=== PATIENT | female | born 2000 | race African-American/Black ===

== ENCOUNTER 2023-03-21 09:50 | Outpatient (REF) | payer MEDICAID, SELFPAY ==
[2023-03-21 11:11] LABS: HCG Quantitative < 2 mIU/mL
== END 2023-03-21 09:51 | disposition home or self-care (01) ==
LOC: HO.10HDL 09:50
PROVIDERS: Visit Provider Family Medicine Adult Medicine
DX: Z33.1 Pregnant state, incidental (principal)
CPT/HCPCS: 36415; 84702

== ENCOUNTER 2023-06-26 14:22 | Outpatient (REF) | payer OTHER, SELFPAY ==
[2023-06-27 04:47] LABS: ~Hepatitis B Surface Antibody NONREACTIVE (Nonreactive)
[2023-06-28 17:39] LABS: Rubella IgG Antibody 4.46 Index
[2023-07-03 15:57] LABS: Polio 1 Titer 1:32
== END 2023-06-26 14:23 | disposition home or self-care (01) ==
LOC: HO.LAB 14:22
PROVIDERS: Visit Provider Family Medicine Adult Medicine
DX: Z01.84 Encounter for antibody response examination (principal)
CPT/HCPCS: 36415; 86382; 86706; 86735; 86762; 86765

== ENCOUNTER 2023-10-18 10:24 | Outpatient (REF) | payer OTHER, SELFPAY ==
--- NOTE | ~2023-10-18 | XR_ITS ---
EXAMINATION: XR CHEST CLINICAL INFORMATION: Hemoptysis. Upright chest x-ray for order, patient unsure of , consent obtained. COMPARISON: None available. TECHNIQUE: 2 views of the chest were obtained. FINDINGS: There is no gross pneumothorax. Mild degenerative changes in the thoracic spine. No pleural effusion. Cardiac silhouette upper limits of normal in size. No focal consolidation to suggest pneumonia. XR/XR chest 2V IMPRESSION: No evidence of pneumonia. Cardiac silhouette borderline enlarged. Correlation with clinical exam and possible cardiology consultation recommended.
[2023-10-18 10:43] LABS: MANUAL DIFF FLAG NO
[2023-10-18 12:09] LABS: INTERNATIONAL NORM RATIO 0.9 (0.9-1.1); Prothrombin Time 10.5 SEC (11.1-13.3)
[2023-10-18 12:12] LABS: Partial Thromboplastin Time 30.2 SEC (26.0-36.8)
[2023-10-18 12:23] LABS: Basophils Percent Auto 0.5 % (0-2); Eosinophils Absolute Auto 0.1 X10*3/uL (0.0-0.4); Eosinophils Percent Auto 1.1 % (0-4); Hematocrit 41.5 % (37.0-47.0); Hemoglobin 13.6 g/dl (12.0-16.0); Imm Gran Pct Auto 3.1 % (0.0-0.4); Lymphocytes Absolute Auto 1.4 X10*3/uL (1.2-4.9); Lymphocytes Percent Auto 21.8 % (20-40); Mean Corpuscular HGB Conc 32.8 g/dl (31.0-35.0); Mean Corpuscular Hemoglobin 29.8 pg (27.0-33.0); Monocytes Absolute Auto 0.5 X10*3/uL (0.1-1.2); Monocytes Percent Auto 7.8 % (2-11); Neutrophils Absolute Auto 4.3 x10*3/uL (2.0-8.3); Neutrophils Percent Auto 65.7 % (45-73); Platelet Count 183 X10*3/uL (160-400); Red Blood Count 4.56 X10*6/uL (4.20-5.50); Red Cell Distribution Width 13.5 % (11.0-16.0); White Blood Count 6.5 X10*3/uL (4.8-10.8)
== END 2023-10-18 10:25 | disposition home or self-care (01) ==
LOC: HO.LAB 10:24
PROVIDERS: PCP Family Medicine Adult Medicine; Visit Provider Family Medicine Adult Medicine
DX: R04.2 Hemoptysis (principal)
CPT/HCPCS: 36415; 71046; 85025; 85610; 85730

== ENCOUNTER 2023-11-19 14:46 | Emergency (ER) | payer OTHER, SELFPAY ==
--- NOTE | ~2023-11-19 | US_ITS ---
EXAMINATION: US PELVIS CLINICAL INFORMATION: Abnormal vaginal bleeding. LMP 07/23/2023. COMPARISON: None available. TECHNIQUE: Ultrasound of the pelvis is performed using both transabdominal and transvaginal transducers along with Doppler. Transvaginal imaging is performed due to inadequate visualization transabdominally. FINDINGS: Anteverted anteflexed uterus measuring 6.8 x 3.2 x 4.2 cm. No uterine mass. Thickened vascular endometrium measuring up to 1.3 cm. Trace amount of free fluid in the endocervical canal, likely physiologic. Normal morphology of the ovaries with preserved flow at the moment of this examination. The right ovary measures 3.2 x 1.4 x 1.3 cm, 3.1 mL. The left ovary measures 3.2 x 2.4 x 1.6 cm, 6.4 mL. No free fluid. US/US pelvic and transvaginal IMPRESSION: Abnormal appearance of the endometrium which is thickened and vascular; differential considerations include but are not limited to endometritis, retained products of conception and hyperplasia, less likely neoplasia in view of patient's age. Recommend RN CVICU consult.
[2023-11-19 15:01] VITALS: BP 123/76; PULSE 84; RESP 20; TEMP 36.4; O2SAT 98; BMI 42.0
--- NOTE | 2023-11-19 15:04 | ED.FEMALEGU ---
HPI - Female Genitourinary General Chief complaint: Abdominal Pain Stated complaint: Low Abd Pain Heavy Discharge Time Seen by Provider: 11/20/23 00:45 Source: patient Mode of arrival: ambulatory Limitations: no limitations History of Present Illness HPI Narrative: Patient 23 years old claims that she been for 5 months tested at home test were positive but never seen a ObG today for the 1st time patient had vaginal bleeding no active bleeding at this time patient worried about the miscarriage no nausea no vomiting no abdominal pain no fever or chills Related Data Allergies Allergy/AdvReac Type Severity Reaction Status Date / Time No Known Allergies Allergy Verified 11/19/23 15:07 Review of Systems Review of Systems: Yes all other systems are reviewed and are negative [facility] Social History Social History Advance Directives: No Advance Directives Information Provided: No Physical Exam Vital Signs: Vital Signs: Last Vital Signs Temp 98.1 F 11/20/23 00:46 Pulse 72 11/20/23 00:46 Resp 16 11/20/23 00:46 BP 93/57 L 11/20/23 00:46 Pulse Ox 98 11/20/23 00:46 O2 Del Method Room Air 11/20/23 00:46 BMI result Body Mass Index 42.0 Appearance: Alert. Oriented X3. No acute distress. Obese Eyes: PERRLA, No Nystagmus ENT: Pharynx normal. Oral Mucosa moist Neck: Normal inspection. Neck supple. CVS: Normal heart rate and rhythm. Pulses normal. Respiratory: No respiratory distress. Equal air entry bilateral, no wheezing/rales/rhonchi Abdomen: Soft and nontender. Bowel sounds are present, no mass palpable, no CVA tenderness Skin: Skin warm and dry. Normal skin color. Normal skin turgor. Extremities: No lower extremity edema. No calf tenderness Neuro: Oriented X 3. Course Course Course Narrative: This is an RME: Additional HPI, ROS, PE not included below will be deferred to primary provider. This is a [id number], (4 miscarriages), presenting to the ER with a complaint of vaginal bleeding since today. She states that her periods are irregular and she has not had a menstrual cycle in 5 months. Admits to having sexual intercourse in the last 5 months. Admits to having some nausea. Plan: Labs, UA, US Medical Decision Making Medical Decision Making [facility] Narrative: Patient's hCG is negative unlikely she was before she never had vaginal bleeding for last 5 months no fever no chills no signs of infection patient advised to follow with sheep clipper for DUB Lab Data [facility] Lab Attestation statement: I reviewed the patient's lab results. 11/19/23 16:54 11/19/23 16:54 Labs: Lab Results 11/19/23 Range/Units 16:54 WBC 7.6 (4.8-10.8) X10*3/uL RBC 4.98 (4.20-5.50) X10*6/uL Hgb 14.5 (12.0-16.0) g/dl Hct 44.2 (37.0-47.0) % MCV 88.8 (80.0-98.0) fL MCH 29.1 (27.0-33.0) pg MCHC 32.8 (31.0-35.0) g/dl RDW 13.2 (11.0-16.0) % Plt Count 200 (160-400) X10*3/uL MPV 11.5 (9.4-12.3) fL Immature Gran % (Auto) 1.3 H (0.0-0.4) % Neut % (Auto) 71.3 (45-73) % Lymph % (Auto) 21.4 (20-40) % [place] % (Auto) 4.8 (2-11) % Eos % (Auto) 0.9 (0-4) % Baso % (Auto) 0.3 (0-2) % Lymph # (Auto) 1.6 (1.2-4.9) X10*3/uL [place] # (Auto) 0.4 (0.1-1.2) X10*3/uL Eos # (Auto) 0.1 (0.0-0.4) X10*3/uL Baso # (Auto) 0.0 (0.0-0.2) X10*3/uL Abs Immat Gran (auto) 0.10 H (0.00-0.03) X10*3/uL Absolute Neuts (auto) 5.4 (2.0-8.3) x10*3/uL Absolute Nucleated RBC 0.000 (0.0-0.012) X10*3/uL Nucleated RBC % (auto) 0.0 (0.0-0.2) /100WBC Sodium 142 (135-145) mmol/L Potassium 4.7 (3.3-5.1) mmol/L Chloride 108 (96-108) mmol/L Carbon Dioxide 26 (22-29) mmol/L Anion Gap 13 (12-20) BUN 12 (9-16) mg/dL Creatinine 0.70 (0.5-1.4) mg/dL Estim Creat Clear Calc 151.1 Estimated GFR > 60 Random Glucose 126 H (60-115) mg/dL Calcium 9.8 (8.4-10.2) mg/dL Total Bilirubin 0.3 (0.0-1.0) mg/dL Direct Bilirubin 0.1 (0.0-0.5) mg/dL AST 13 (5-31) U/L ALT 16 (0-31) U/L Alkaline Phosphatase 67 (39-117) U/L Total Protein 7.9 (6.5-8.0) g/dL Albumin 3.9 (3.5-5.0) g/dL Beta HCG, Quant < 2 mIU/mL Blood Type O Positive Antibody Screen NEGATIVE Independent Interpretation I performed an independent interpretation of an: Ultrasound Radiology Impression Discussion of test interpretation with radiology: I have reviewed the radiologist's reading. Radiologist Impression: US/US pelvic and transvaginal IMPRESSION: Abnormal appearance of the endometrium which is thickened and vascular; differential considerations include but are not limited to endometritis, retained products of conception and hyperplasia, less likely neoplasia in view of patient's age. Recommend [employer]ENER consult. Discharge Plan Discharge Clinical Impression: Vagina bleeding Patient Disposition: Home, Self-Care Instructions: Dysfunctional Uterine Bleeding (ED) Additional Instructions: Your test is negative Your blood type is O-positive Follow with your chaplain resident if any concerns Referrals: Alvaro Villar MD [Physician] - 2 weeks
--- NOTE | 2023-11-19 16:59 | MHC.EDTECH ---
PATIENT BLOOD DRAWN INCLUDING TYPE AND SCREEN ALL SENT TO LAB.
[2023-11-19 17:01] LABS: MANUAL DIFF FLAG NO
[2023-11-19 17:02] LABS: Basophils Percent Auto 0.3 % (0-2); Eosinophils Absolute Auto 0.1 X10*3/uL (0.0-0.4); Eosinophils Percent Auto 0.9 % (0-4); Hematocrit 44.2 % (37.0-47.0); Hemoglobin 14.5 g/dl (12.0-16.0); Imm Gran Pct Auto 1.3 % (0.0-0.4); Lymphocytes Absolute Auto 1.6 X10*3/uL (1.2-4.9); Lymphocytes Percent Auto 21.4 % (20-40); Mean Corpuscular HGB Conc 32.8 g/dl (31.0-35.0); Mean Corpuscular Hemoglobin 29.1 pg (27.0-33.0); Mean Corpuscular Volume 88.8 fL (80.0-98.0); Mean Platelet Volume 11.5 fL (9.4-12.3); Monocytes Absolute Auto 0.4 X10*3/uL (0.1-1.2); Monocytes Percent Auto 4.8 % (2-11); Neutrophils Absolute Auto 5.4 x10*3/uL (2.0-8.3); Neutrophils Percent Auto 71.3 % (45-73); Platelet Count 200 X10*3/uL (160-400); Red Blood Count 4.98 X10*6/uL (4.20-5.50); Red Cell Distribution Width 13.2 % (11.0-16.0); White Blood Count 7.6 X10*3/uL (4.8-10.8)
[2023-11-19 17:25] LABS: Alanine Aminotransferase 16 U/L (0-31); Albumin Level 3.9 g/dL (3.5-5.0); Alkaline Phosphatase 67 U/L (39-117); Anion Gap 13 (12-20); Aspartate Amino Transferase 13 U/L (5-31); Bilirubin Direct 0.1 mg/dL (0.0-0.5); Bilirubin Total 0.3 mg/dL (0.0-1.0); Blood Urea Nitrogen 12 mg/dL (9-16); Calcium 9.8 mg/dL (8.4-10.2); Carbon Dioxide 26 mmol/L (22-29); Chloride 108 mmol/L (96-108); Creatinine Clr Calc Pharmacy 151.1; Estimated Glomerular Filt Rate > 60; Glucose Random 126 mg/dL (60-115); Potassium 4.7 mmol/L (3.3-5.1); Sodium 142 mmol/L (135-145); Total Protein 7.9 g/dL (6.5-8.0)
[2023-11-19 17:27] LABS: HCG Quantitative < 2 mIU/mL
--- NOTE | 2023-11-19 18:00 | MHC.EDTECH ---
PATIENT 2ND TYPE AND SCREEN DRAWN AND SENT TO LAB .
[2023-11-19 22:13] VITALS: BP 118/70; PULSE 80; RESP 16; TEMP 37.2; O2SAT 99
--- NOTE | 2023-11-19 22:14 | MHC.EDTECH ---
PATIENT WAS CALL BACK TO TRIAGE TO RE VITAL ,VITALS ARE STABLE ,NO APPARENT DISTRESS NOTED AT THIS TIME .
[2023-11-20 00:46] VITALS: BP 93/57; PULSE 72; RESP 16; TEMP 36.7; O2SAT 98
[2023-11-20 01:20] VITALS: BP 101/68; PULSE 78; RESP 18; TEMP 36.6; O2SAT 99
== END 2023-11-20 01:21 | disposition home or self-care (01) ==
PROVIDERS: Physician Assistant Medical; Emergency Provider Internal Medicine
DX: N93.9 Abnormal uterine and vaginal bleeding, unspecified (principal); R11.0 Nausea; R10.30 Lower abdominal pain, unspecified; R10.2 Pelvic and perineal pain; Z79.899 Other long term (current) drug therapy
CPT/HCPCS: 36415; 76830; 76856; 80048; 80076; 84702; 85025; 86850; 86900; 86901; 99283; 99284